=== PATIENT | male | born 1995 | race African-American/Black ===

== ENCOUNTER 2019-09-03 14:34 | Emergency (ER) | payer SELFPAY ==
[2019-09-03] MEDS ORDERED: Famotidine 20 MG TAB ONE (15:11)
[2019-09-03] MEDS ORDERED: diphenhydrAMINE 25 MG CAP ONE (15:11)
[2019-09-03] MEDS ORDERED: Dexamethasone 4 MG TAB ONE (15:13)
== END 2019-09-03 15:18 | disposition home or self-care (01) ==
LOC: ERS 14:34
DX: T78.40XA Allergy, unspecified, initial encounter (principal); F17.210 Nicotine dependence, cigarettes, uncomplicated
CPT/HCPCS: J8540; Q0163

== ENCOUNTER 2019-09-10 18:16 | Emergency (ER) | payer SELFPAY | END 2019-09-10 18:30 | disposition home or self-care (01) | LOC: ERS 18:16 | DX: M54.5 Low back pain (principal); F17.210 Nicotine dependence, cigarettes, uncomplicated | CPT/HCPCS: 99281 ==